=== PATIENT | male | born 1990 | race Caucasian/White ===

== ENCOUNTER 2020-09-20 09:39 | Emergency (ER) | payer OTHER ==
[~2020-09-20] VITALS: Ht 167.6 cm; Wt 51.3 kg
[2020-09-20 09:42] VITALS: Ht 167.6 cm; Wt 51.3 kg
[2020-09-20 11:54] LABS: BASOPHIL % 0.4 % (0.2-1.5); PLATELET COUNT 170 x10^3mcL (152-348); RED CELL DISTRIBUTION WIDTH 12.6 % (12.1-16.2)
[2020-09-20 12:20] LABS: CALCIUM 8.9 mg/dL (8.5-10.1); CARBON DIOXIDE 25.9 mmol/L (21-32); CHLORIDE SERUM 101 mmol/L (98-107); CREATININE SERUM 1.1 mg/dL (0.7-1.3); GFR1 > 60 mL/min; GLUCOSE SERUM 87 mg/dL (74-106); POTASSIUM SERUM 4.1 mmol/L (3.5-5.1); SODIUM SERUM 139 mmol/L (136-145)
[2020-09-20 12:26] LABS: ALBUMIN 4.3 g/dL (3.4-5.0); ALKALINE PHOSPHATASE 74 U/L (46-116); AST/SGOT 19 U/L (15-37); LIPASE 152 IU/L (73-393)
[2020-09-20 12:27] LABS: TOTAL PROTEIN, SERUM 8.3 g/dL (6.4-8.2)
[2020-09-20 12:46] LABS: ALT/SGPT 21 U/L (16-63)
[2020-09-20] MEDS ORDERED: AUGMENTIN 875-1 EACH PO (13:21)
[2020-09-20] MEDS ORDERED: FLAGYL500 MG PO (13:21)
[2020-09-20 14:22] VITALS: BP 115/68
== END 2020-09-20 14:22 | disposition home or self-care (01) ==
LOC: ED 09:39
PROVIDERS: Student in an Organized Health Care Education/Training Program
DX: K52.9 Noninfective gastroenteritis and colitis, unspecified (principal)
CPT/HCPCS: 82962; J7030; Q9967